=== PATIENT | male | born 1960 | race American Indian/Alaskan Native ===

== ENCOUNTER 2022-04-18 02:28 | Inpatient (IN) | payer OTHER ==
[~2022-04-18] VITALS: Ht 177.8 cm; Wt 106.4 kg
[2022-04-18 02:49] LABS: BASO # 0.1 K/mm3 (0.0-0.2); BASO % 0.8 % (0.0-2.0); EOS # 0.3 K/mm3 (0.0-0.7); GRAN # 5.6 K/mm3 (1.4-6.5); GRAN % 54.7 % (42.2-75.2); HEMATOCRIT 49.7 % (42.0-52.0); HEMOGLOBIN 16.3 g/dl (13.5-18.0); LYMPH # 3.2 K/mm3 (1.2-3.4); LYMPH % 31.5 % (20.0-51.0); MEAN CELL VOLUME 86 fl (80.0-100.0); MEAN CORPUSCULAR HEMOGLOBIN 28 pg (27-31); MEAN CORPUSCULAR HGB CONC 33 g/dl (33.0-37.0); MEAN PLATELET VOLUME 13.2 fl (7.4-10.4); MONO # 0.9 K/mm3 (0.1-0.6); PLATELET COUNT 223 K/mm3 (130-400); RED BLOOD COUNT 5.79 M/mm3 (4.20-5.60); REDCELL DISTRIBUTION WIDTH-CV 15.8 % (11.5-14.5)
[2022-04-18 04:11] LABS: ALANINE AMINOTRANSFERASE 18 U/L (0-55); ALBUMIN 2.8 gm/dL (3.4-4.8); ALCOHOL(ethanol),MEDICAL < 10 mg/dL (0-10); ALKALINE PHOSPHATASE 121 U/L (40-150); ANION GAP 10 mmol/L (7-16); AST,SGOT 11 U/L (5-34); BILIRUBIN,TOTAL 0.4 mg/dL (0.2-1.2); BLOOD UREA NITROGEN 15 mg/dL (8-26); CALCIUM 8.3 mg/dL (8.4-10.2); CARBON DIOXIDE 22 mmol/L (23-31); CHLORIDE 102 mmol/L (98-107); CREATININE, serum 1.35 mg/dL (0.72-1.25); POTASSIUM 3.5 mmol/L (3.5-4.5); SODIUM 134 mmol/L (136-145); TOTAL PROTEIN 6.5 gm/dL (6.2-8.1)
[2022-04-18 04:12] LABS: GLUCOSE 558 mg/dL (70-99)
[2022-04-18 06:32] LABS: COLLECTION METHOD CLEAN CATCH
[2022-04-18 06:59] LABS: PH 5.5 (5.0-8.5); URINE APPEARANCE Clear (CLEAR/HAZY); URINE BLOOD 1+ (NEGATIVE); URINE COLOR Yellow (YELLOW); URINE GLUCOSE 3+ (NEGATIVE); URINE KETONE Negative (NEGATIVE); URINE NITRATE Negative (NEGATIVE); URINE PROTEIN(semi-quant) 3+ (NEGATIVE); URINE UROBILINOGEN 0.2 E.U/dL (0.2-1.0)
[2022-04-18 07:00] LABS: MUCOUS Present (NOT PRESENT); SQUAMOUS EPITHELIAL 0-2 /hpf (0-10); URINE BACTERIA None Seen /hpf (NONE SEEN)
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
[2022-04-18 11:00] VITALS: BP 126/55; PULSE 95; TEMP 97.9
[2022-04-18] MEDS ORDERED: AMOXICILLIN 50500 MG (11:57)
[2022-04-18 12:00] VITALS: PULSE 95
[2022-04-18] MEDS ORDERED: LIPITOR 80MG80 MG PO (12:37)
[2022-04-18] MEDS ORDERED: GLUCOPHAGE1000 MG PO (12:37)
[2022-04-18] MEDS ORDERED: JARDIANCE25 PO (12:38)
[2022-04-18 16:44] VITALS: BP 160/71; PULSE 95; TEMP 97.9
--- NOTE | 2022-04-18 20:30 | NUR ---
PT SITTING AT EDGE OF BED, REPOSITIONED ASPEN COLLAR AND SLING/SWATHE AT THIS TIME FOR COMFORT. PT IS ALERT AND ORIENTED X4. HAS INT TO RFA, FLUSHES WELL. REPORTS PAIN TO RIGHT UPPER ARM. HAS ABRASION TO TOP OF HEAD. VOIDING WITHOUT PROBLEM.
--- NOTE | 2022-04-18 20:45 | NUR ---
MEDICATED WITH HS MEDS INCLUDING MORPHINE 2MG IVP, NORCO 5/325 1 TAB AND IBUPROFEN 600MG PO FOR RT ARM PAIN. ASSISTED WITH LAYING BACK IN THE BED.
[2022-04-18 21:11] VITALS: BP 120/66; PULSE 97; TEMP 98.1
[2022-04-18 23:05] VITALS: BP 132/69; PULSE 96; TEMP 99
--- NOTE | 2022-04-19 00:45 | NUR ---
PT DENIES NEED FOR PAIN MEDS AT THIS TIME. HAS OXYGEN ON AT 2L/NC, WEARS A CPAP AT HOME.
[2022-04-19 03:41] VITALS: BP 121/69; PULSE 89; TEMP 97.8
[2022-04-19 06:27] LABS: HEMATOCRIT 50.4 % (42.0-52.0); HEMOGLOBIN 15.3 g/dl (13.5-18.0)
[2022-04-19 06:42] LABS: CALCIUM 8.7 mg/dL (8.4-10.2); CREATININE, serum 1.82 mg/dL (0.72-1.25); POTASSIUM 3.6 mmol/L (3.5-4.5)
[2022-04-19 07:56] VITALS: BP 151/78; PULSE 88; TEMP 97.8
--- NOTE | 2022-04-19 10:35 | NUR ---
Bladder scanned at this time-240mls. Patient states he does not have the urge to urinate. NS@100mls/hr started at this time per order. Will monitor.
--- NOTE | 2022-04-19 11:10 | NUR ---
Report from PT that patient was nauseas and had a small amount of emesis. Noted to have 50mls of undigested food in basin. Zofran given per dr order. Patient states the eggs and peppers just didnt sit with him. Will monitor.
--- NOTE | 2022-04-19 11:21 | NUR ---
STUART met with the patient to review discharge plan and to inquire about plans to return back to his home in [place]. The patient states that he wants to go straight home upon discharge. He imagines he will fly back, but has not made arrangements yet. He states that his had a stroke a little over a year ago, so she will not be traveling to [place]. He states that he has three children, one of which he is not close to. He states that he will likely work with his daughter, Kathia, on trying to find quick and cheaper tickets to fly back to [place]. Kathia lives in [place]. STUART attempted to contact the patient's , Neyda. STUART left her a voicemail. STUART provided the patient with this STUART's phone number.
[2022-04-19 12:41] VITALS: BP 132/62; PULSE 92; TEMP 97.8
[2022-04-19 15:54] VITALS: BP 139/70; PULSE 92; TEMP 98.6
--- NOTE | 2022-04-19 18:14 | NUR ---
Patient had an uneventful day. Received norco for pain with good results. VS remained stable. Has had blood sugars in the 200s today. NS@125ml/hr in right FA infusing without difficulty. Has finally voided x1 today at 600mls/hr. Denies current needs. Call light in reach will monitor.
[2022-04-19 19:57] VITALS: BP 162/88; PULSE 106; TEMP 98.3
--- NOTE | 2022-04-19 20:09 | NUR ---
PT SITTING AT EDGE OF BED, REPORTS RT ARM PAIN /. MEDICATED WITH HS MEDS INCLUDING MOTRIN 600MG PO, NORCO 1 TAB PO AND MORPHINE 2MG IVP. IVF TO RFA INFUSING WITHOUT PROBLEM. ASPEN C-COLLAR ON, RT ARM IN SLING/SWATHE. OXYGEN AT 2L/NC. VOIDING WITHOUT PROBLEM.
[2022-04-19 23:44] VITALS: BP 149/78; PULSE 100; TEMP 98.7
[2022-04-20 04:00] VITALS: BP 140/67; PULSE 99; TEMP 98.2
--- NOTE | 2022-04-20 04:03 | NUR ---
PT HAS OXYGEN OFF, SATS ARE UPPER 80'S. ENCOURAGED PT TO WEAR, REPLACED AT 2L/NC. DENIES NEED FOR PAIN MEDS AT THIS TIME.
[2022-04-20 06:40] LABS: BASO # 0.1 K/mm3 (0.0-0.2); BASO % 0.5 % (0.0-2.0); EOS # 0.2 K/mm3 (0.0-0.7); EOS % 1.9 % (0.0-4.0); GRAN % 63.2 % (42.2-75.2); HEMATOCRIT 48.3 % (42.0-52.0); HEMOGLOBIN 14.5 g/dl (13.5-18.0); LYMPH # 2.2 K/mm3 (1.2-3.4); LYMPH % 23.4 % (20.0-51.0); MEAN CORPUSCULAR HEMOGLOBIN 28 pg (27-31); MEAN CORPUSCULAR HGB CONC 30 g/dl (33.0-37.0); MONO % 10.6 % (1.7-9.3); PLATELET COUNT 160 K/mm3 (130-400); RED BLOOD COUNT 5.22 M/mm3 (4.20-5.60); REDCELL DISTRIBUTION WIDTH-CV 16.1 % (11.5-14.5)
--- NOTE | 2022-04-20 06:45 | NUR ---
Report received assumed care for day shift. Resting with eyes closed. No s/s of pain/discomfort noted.
[2022-04-20 06:53] LABS: MEAN CELL VOLUME 93 fl (80.0-100.0)
[2022-04-20 07:04] LABS: CALCIUM 8.8 mg/dL (8.4-10.2); CREATININE, serum 1.45 mg/dL (0.72-1.25); POTASSIUM 3.7 mmol/L (3.5-4.5)
[2022-04-20 07:58] VITALS: BP 169/77; PULSE 101; TEMP 97.7
--- NOTE | 2022-04-20 07:58 | NUR ---
Report from PCT that patient had removed his oxygen because it wouldnt reach where he was sitting. Noted to have O2 saturations in the low 80s. Instructed to keep O2 on and an extension tube was added. Verbalizes understanding.
--- NOTE | 2022-04-20 08:45 | NUR ---
Assessment complete. A&Ox4. Patient states he is very tired this morning. Sitting up in chair. Denies nausea/pain/shortness of breath. [place] Collar on. Right upper extremity in swathe/sling. Noted to have more swelling to that arm. VS have remained stable. Patient states he is not hungry this morning. Currently has insulin due and blood sugar is 144. Patient did order a breakfast tray-will administer insulin when tray arrives if patient eats. NS@75mls/hr to right forearm IV infusing without difficulty. O2@2L/NC. Encouraged to use IS. Plan of care discussed for blood sugar monitoring/meds/calling for questions/concerns. Verbalizes understanding. Call light in reach. Will monitor.
[2022-04-20 12:01] VITALS: BP 148/66; PULSE 99; TEMP 98.7
--- NOTE | 2022-04-20 13:30 | NUR ---
Patient very tearful stating he is in so much pain to the right upper arm and back. Rating pain 10/10 on pain scale. Morphine and norco given at this time.
[2022-04-20 16:03] VITALS: BP 148/71; PULSE 96; TEMP 98.4
--- NOTE | 2022-04-20 20:00 | NUR ---
PT SITTING IN CHAIR AT BEDSIDE. IV SITE LEAKING, NEW SITE STARTED TO LFA WITH #20 INSYTE ON FIRST ATTEMPT. IVF CONNECTED AND INFUSING WITHOUT REDNESS OR SWELLING. PTS SON AT BEDSIDE. ADJUSTED ASPEN C-COLLAR AND SLING/SWATHE FOR PT COMFORT.
[2022-04-20 20:26] VITALS: BP 184/80; PULSE 100; TEMP 98.9
--- NOTE | 2022-04-20 20:36 | NUR ---
MEDICATED WITH HS MEDS INCLUDING MORPHINE 2MG IVP AND NORCO 1 TAB PO FOR PAIN 01/23 TO RT ARM. USES IS WITH INSTRUCTION. WILL MONITOR FOR CHANGES.
[2022-04-21] VITALS (9 sets, daily range): BP systolic 137–182; BP diastolic 69–90; PULSE 91–98; TEMP 97.6–98.2
--- NOTE | 2022-04-21 00:59 | NUR ---
PT SITTING IN CHAIR AT BEDSIDE, FAMILY IN ROOM. REPORTS BEING COMFORTABLE IN THE CHAIR AT THIS TIME.
--- NOTE | 2022-04-21 01:00 | NUR ---
Patient care, medication administration and nursing documentation occurred during a Daylight Savings Time Change.
--- NOTE | 2022-04-21 04:30 | NUR ---
PT SITTING IN RECLINER, FAMILY IN ROOM. MEDICATED WITH NORCO 1 TAB PO AND MORPHINE 2MG IVP AT THIS TIME FOR RT ARM PAIN.
--- NOTE | 2022-04-21 07:06 | NUR ---
Resting in recliner eyes closed.
[2022-04-21 07:22] LABS: BASO % 0.4 % (0.0-2.0); EOS # 0.2 K/mm3 (0.0-0.7); EOS % 2.4 % (0.0-4.0); GRAN # 4.5 K/mm3 (1.4-6.5); GRAN % 59.9 % (42.2-75.2); HEMATOCRIT 44.7 % (42.0-52.0); HEMOGLOBIN 13.6 g/dl (13.5-18.0); LYMPH % 26.6 % (20.0-51.0); MEAN CELL VOLUME 91 fl (80.0-100.0); MEAN CORPUSCULAR HEMOGLOBIN 28 pg (27-31); MEAN CORPUSCULAR HGB CONC 30 g/dl (33.0-37.0); MEAN PLATELET VOLUME 11.8 fl (7.4-10.4); MONO # 0.8 K/mm3 (0.1-0.6); MONO % 10.3 % (1.7-9.3); PLATELET COUNT 144 K/mm3 (130-400); RED BLOOD COUNT 4.91 M/mm3 (4.20-5.60); REDCELL DISTRIBUTION WIDTH-CV 15.9 % (11.5-14.5)
[2022-04-21 07:33] LABS: CALCIUM 8.1 mg/dL (8.4-10.2); CREATININE, serum 1.12 mg/dL (0.72-1.25); POTASSIUM 3.6 mmol/L (3.5-4.5)
--- NOTE | 2022-04-21 08:30 | NUR ---
Assessment complete. A&Ox4. Denies nausea/shortness of breath. Rating pain 3/10 on pain scale to right upper arm. Swathe/sling has [id number]-[id number] at this time. [place] collar on. Left forearm IV with NS@100ML/HR to left forearm IV without difficulty. Plan of care discussed for this shift to include pain control/blood sugars/calling for questions/concerns. Verbalizes understanding. Call light in reach. Will monitor.
--- NOTE | 2022-04-21 17:43 | NUR ---
Notified Dr Esteban of increase in blood pressures. Patient states he takes BP meds daily and forgot to tell us. States he does not know the dose. New orders received and initiated.
[2022-04-21] MEDS ORDERED: NORVASC 5MG5 MG/TAB PO (17:45)
[2022-04-21] MEDS ORDERED: TOPROL XL 25MG25 MG PO (17:46)
--- NOTE | 2022-04-21 17:58 | NUR ---
Patient has had an uneventful day. Ambulated in the hallway with PT. Blood sugars have been better. VS remained stable until this afternoon when blood pressure was elevated. Swathe/sling/aspen collar on. Family left to go home. Denies current needs. Call light in reach. Will monitor.
--- NOTE | 2022-04-21 19:34 | NUR ---
PT IN BED. REPORTS PAIN TO RT ARM 01/23. MEDICATED WITH MORPHINE 2MG IVP AND NORCO 1 TAB PO AT THIS TIME. PT EATING DINNER. IVF TO LFA INFUSING WITHOUT PROBLEM. VOIDING PER URINAL. ASPEN COLLAR AND SLING/SWATHE RELEASED AND READJUSTED AND REAPPLIED FOR COMFORT. REPORTS MILD NAUSEA, ZOFRAN GIVEN IVP WELL.
[2022-04-22 03:33] VITALS: BP 148/49; PULSE 89; TEMP 97.5
--- NOTE | 2022-04-22 04:38 | NUR ---
PT REPORTS PAIN TO RT ARM, MEDICATED WITH MORPHINE 2MG IVP.
[2022-04-22 08:16] VITALS: BP 170/89; PULSE 83; TEMP 97.9
[2022-04-22 12:02] VITALS: BP 149/74; PULSE 87; TEMP 97.5
--- NOTE | 2022-04-22 13:35 | NUR ---
Patient's left leg and arm appear to be more swollen on this side than the right. Reports slight tenderness to the right calf. Pedal pulses unable to be palpated. Hospitalist notified. Will obtain Dopplar or extremities.
--- NOTE | 2022-04-22 14:21 | NUR ---
The surgeon, Dr. Martin, left this SW a message stating that the patient will be ready to discharge soon. STUART contacted Dr. Martin. Dr. Martin believes the patient would be fine to fly back home and would be ready to discharge by Friday. He plans to collaborate with the hospitalist team. STUART met with the patient to review discharge plan. The patient states that his job plans to fly him back to [place], but they need to speak to this SW. He contacted his employer and placed them on speaker phone. His employers wanted to confirms discharge date, so they can start looking for flights out of the [facility]. SW confirmed discharge date for Friday. His employers state that they will start looking for flights on Friday evening. STUART updated the PA.
--- NOTE | 2022-04-22 16:30 | NUR ---
Patient's systolic BP elevated in the 190's. Reports 7/10 neck and shoulder pain. Will administer PRN pain medication. Patient has two BP home meds which were not resumed. Discussed with NAHOMY Herndon and she will review chart and home medication list.
[2022-04-22 16:53] VITALS: BP 190/80; PULSE 92; TEMP 97.7
--- NOTE | 2022-04-22 17:00 | NUR ---
Ok per Dr. Martin to take a shower; however, must keep on C-collar at all times.
[2022-04-22 20:07] VITALS: BP 168/78; PULSE 86; TEMP 97.8
--- NOTE | 2022-04-22 21:29 | NUR ---
PT SITTING IN CHAIR AT BEDSIDE, REPORTS PAIN TO RT ARM. RE-ADJUSTED SLING/SWATHE FOR COMFORT. RT UPPER ARM SIGNIFICANTLY BRUISED. ASPEN COLLAR IN PLACE. INT TO LFA FLUSHES WELL, MORPHINE 2MG IVP GIVEN. HS MEDS GIVEN INCLUDING NORCO FOR PAIN. VOIDING WELL PER URINAL.
[2022-04-22 23:22] VITALS: BP 150/84; PULSE 95; TEMP 98.2
[2022-04-23 04:24] VITALS: BP 175/82; PULSE 88; TEMP 97.6
--- NOTE | 2022-04-23 04:54 | NUR ---
PTS B/P ELEVATED, HAVING RT ARM PAIN. NORCO PO AND MORPHINE 2MG IVP GIVEN.
[2022-04-23 06:47] LABS: BASO % 0.7 % (0.0-2.0); EOS # 0.3 K/mm3 (0.0-0.7); EOS % 6.1 % (0.0-4.0); GRAN # 2.7 K/mm3 (1.4-6.5); GRAN % 50.2 % (42.2-75.2); HEMOGLOBIN 13.7 g/dl (13.5-18.0); LYMPH # 1.7 K/mm3 (1.2-3.4); LYMPH % 31.9 % (20.0-51.0); MEAN CELL VOLUME 92 fl (80.0-100.0); MEAN CORPUSCULAR HEMOGLOBIN 28 pg (27-31); MEAN CORPUSCULAR HGB CONC 30 g/dl (33.0-37.0); MEAN PLATELET VOLUME 11.6 fl (7.4-10.4); MONO # 0.6 K/mm3 (0.1-0.6); MONO % 10.7 % (1.7-9.3); PLATELET COUNT 172 K/mm3 (130-400); RED BLOOD COUNT 4.98 M/mm3 (4.20-5.60); REDCELL DISTRIBUTION WIDTH-CV 15.7 % (11.5-14.5)
[2022-04-23 07:13] LABS: CALCIUM 8.2 mg/dL (8.4-10.2); CREATININE, serum 0.81 mg/dL (0.72-1.25); POTASSIUM 3.9 mmol/L (3.5-4.5)
[2022-04-23 07:36] VITALS: BP 157/81; PULSE 82; TEMP 97.4
--- NOTE | 2022-04-23 08:45 | NUR ---
Pt. sitting up at bedside. Pt. is A&OX3, assessment complete. INT lt. forearm patent. C-collar in place. Sling to rt. arm on. Pt. reports pain at a 5 on pain scale, gave pain meds per orders. Pt. requesting a shower. does not want him to shower without the C-collar on. Unable to get a shower collar. Pt. assisted with bathwipes by nursing assistants teacher. Pt. denies further needs, call light within reach.
[2022-04-23 11:05] VITALS: BP 161/65; PULSE 88; TEMP 97.8
[2022-04-23 15:47] VITALS: BP 170/75; PULSE 94; TEMP 98.4
--- NOTE | 2022-04-23 15:52 | NUR ---
Health Lead met with patient to provide [place] paperwork and flight arrangements for . SW notified RN that patient's flight will not leave until and RN advised she can notify Dr. Martin.
--- NOTE | 2022-04-23 16:18 | NUR ---
Trinidad, with [employer], contacted this SW. She requested records. She states that if the patient is to need any DME upon discharge, to contact her, so they can get it set up. faxed updates to Trinidad with [employer]. Trinidad #[phone] fax#[phone]
[2022-04-23 21:35] VITALS: BP 184/82; PULSE 94; TEMP 98.1
--- NOTE | 2022-04-23 22:35 | NUR ---
SHIFT REPORT FROM DAY SHIFT RN. PATIENT IN CHAIR ON ROOM ENTRY. HS MEDS PER EA. BS 147, NO INSULIN PER SS. BP 184/82, NOTIFIED ERASMO CODY AND ORDER FOR LEBATOLOL 10 MG GIVEN. C COLLAR IN PLACE. SLING TO R ARM IN PLACE. MODERATE PAIN 6/10 TO R ARM AND PRN NORCO GIVEN. STATES HE HAD X2 LOOSE BMS AND COLACE HELD. DENIES ADDITIONAL NEEDS. CALL LIGHT IN REACH.
[2022-04-23 23:30] VITALS: BP 142/75; PULSE 88; TEMP 97.9
[2022-04-24 04:26] VITALS: BP 154/70; PULSE 88; TEMP 97.7
[2022-04-24 08:09] VITALS: BP 179/85; PULSE 87; TEMP 98
--- NOTE | 2022-04-24 08:28 | NUR ---
Pt assessment complete. Pt is sitting up on the side of the bed, he is A/O x4. His breathing is even and unlabored, currently on 2L O2 placed overnight. Denies SOB. Pain 5/10 to R shoulder and L ankle. Denies need for intervention at this time. No N/V. RUE in sling, has C collar in place. Student nurse assisting with cares today. No needs at this time. Call light within reach.
--- NOTE | 2022-04-24 09:00 | NUR ---
Patient assessment complete, VSS. Assessment reveals edema of LLE & Left foot, crackles in the bases of lungs with no pain on ventilation or labored breathing. Patient is discontinued of 2L/NC to observe for a maintained RA saturation. Patient would like to shower and attempt ambulation of halls. Patient appetite seems improved, prefers richardson over sausage for his breakfast meal and complaints of nausea diminished.
[2022-04-24 10:55] VITALS: BP 160/65; PULSE 100; TEMP 98.7
--- NOTE | 2022-04-24 14:18 | NUR ---
Tax Professional met with patient who advised his employer should be securing him an uber to the airport tomorrow for his 1100 flight. SW provided patient with clothes and shoes.
[2022-04-24 15:44] VITALS: BP 160/73; PULSE 100; TEMP 97.3
--- NOTE | 2022-04-24 17:39 | NUR ---
Pt had uneventful day. Up in the recliner during the day. Wore the C collar, and sling to RUE. Pain intermittent, relieved with PRN pain medications. Denies needs at this time. Call light within reach.
[2022-04-24 19:54] VITALS: BP 180/76; PULSE 101; TEMP 98.8
--- NOTE | 2022-04-24 21:34 | NUR ---
SHIFT REPORT FROM DAY SHIFT RN. PATIENT IN CHAIR ON ROOM ENTRY. HS MEDS PER EMAR. PRN NORCO FOR MODERATE PAIN. BP WAS 180/76 AND PRN LEBATOLOL GIVEN. SLING TO R ARM AND C COLLAR REMAIN IN PLACE. SPOKE WITH DAUGHTER ON PHONE WHO REQUESTS A EMAR ADMINISTRATION REPORT BE SENT TO ANOTHER DOCTOR. DISCUSSED THIS WITH PATIENT AND EMAR REPORT WAS THEN FAXED TO DR. EMAM NGUYEN PER PATIENT. STATES HIS UBER IS SUPPOSED TO PICK HIM UP AT 0730.
[2022-04-25 00:16] VITALS: BP 159/75; PULSE 96; TEMP 98
[2022-04-25 04:13] VITALS: BP 192/85; PULSE 95; TEMP 97.5
--- NOTE | 2022-04-25 04:32 | NUR ---
BP 192/85, NOTIFIED FLOYD COREA, ORDER TO GIVE PRN LEBATOLOL.
[2022-04-25 06:44] LABS: BASO % 0.7 % (0.0-2.0); EOS # 0.2 K/mm3 (0.0-0.7); EOS % 4.2 % (0.0-4.0); GRAN # 2.7 K/mm3 (1.4-6.5); GRAN % 46.8 % (42.2-75.2); HEMATOCRIT 41.9 % (42.0-52.0); HEMOGLOBIN 13.3 g/dl (13.5-18.0); LYMPH % 34.8 % (20.0-51.0); MEAN CELL VOLUME 88 fl (80.0-100.0); MEAN CORPUSCULAR HEMOGLOBIN 28 pg (27-31); MEAN CORPUSCULAR HGB CONC 32 g/dl (33.0-37.0); MEAN PLATELET VOLUME 11.2 fl (7.4-10.4); MONO # 0.7 K/mm3 (0.1-0.6); MONO % 12.8 % (1.7-9.3); PLATELET COUNT 173 K/mm3 (130-400); RED BLOOD COUNT 4.79 M/mm3 (4.20-5.60); REDCELL DISTRIBUTION WIDTH-CV 15.6 % (11.5-14.5)
[2022-04-25 07:02] LABS: CALCIUM 8.3 mg/dL (8.4-10.2); CREATININE, serum 0.85 mg/dL (0.72-1.25); POTASSIUM 3.7 mmol/L (3.5-4.5)
--- NOTE | 2022-04-25 07:29 | NUR ---
REPORT GIVEN. PATIENT DISCHARGING EARLY. ASSESSMENT NOT ABLE TO BE FULLY COMPLETED DUE TO PATIENT LEAVING UPON ARRIVAL TO SHIFT. PATIENT ALERT AND ORIENTED. IV DC'D. DISCHARGE INSTRUCTIONS PROVIDED. PATIENT EDUCATION GIVEN. FOLLOW UP APPOINTMENTS DISCUSSED. MEDICATIONS REVIEWED. PATIENT DENIES ANY QUESTIONS OR CONCERNS. PATIENT GIVEN MEDS EARLY DUE TO FLIGHT TIME. PATIENT ESCORTED OUT VIA WHEELCHAIR.
== END 2022-04-25 07:27 | disposition home or self-care (01) | DRG 205 ==
LOC: COL.ER 02:28 → SURG 06:29
PROVIDERS: Emergency Medicine; Physician Assistant; Student in an Organized Health Care Education/Training Program; ADMIT Surgery
DX: S27.321A Contusion of lung, unilateral, initial encounter (principal); J96.01 Acute respiratory failure with hypoxia; S12.500A Unspecified displaced fracture of sixth cervical vertebra, initial encounter for closed fracture; S42.231A 3-part fracture of surgical neck of right humerus, initial encounter for closed fracture; N17.9 Acute kidney failure, unspecified; J98.11 Atelectasis; E11.65 Type 2 diabetes mellitus with hyperglycemia; R91.8 Other nonspecific abnormal finding of lung field; E78.5 Hyperlipidemia, unspecified; Z79.4 Long term (current) use of insulin; V89.2XXA Person injured in unspecified motor-vehicle accident, traffic, initial encounter; Y93.89 Activity, other specified; Z87.891 Personal history of nicotine dependence; Z79.84 Long term (current) use of oral hypoglycemic drugs; Y92.488 Other paved roadways as the place of occurrence of the external cause
CPT/HCPCS: OP; A9270; A9284; G0378; J1650; J1815; J2270; J2405; J3010; J7030; Q9967